=== PATIENT | male | born 1990 | race Caucasian/White ===

== ENCOUNTER 2021-12-31 10:57 | Emergency (ER) | payer MEDICAID ==
[~2021-12-31] VITALS: Ht 165.1 cm; Wt 73.0 kg
[2021-12-31 11:00] VITALS: BP 125/76
== END 2021-12-31 12:35 | disposition left against medical advice (07) ==
LOC: ER 11:12
DX: F32.9 Major depressive disorder, single episode, unspecified (principal); F41.9 Anxiety disorder, unspecified; F20.9 Schizophrenia, unspecified; F43.10 Post-traumatic stress disorder, unspecified
CPT/HCPCS: 99283